=== PATIENT | male | born 1990 | race Caucasian/White ===

== ENCOUNTER 2017-06-20 07:47 | Emergency (ER) | payer BC ==
[2017-06-20] MEDS ORDERED: SODIUM CHLORIDE 0.9% 1,000 ML IV STA (08:03)
--- NOTE | 2017-06-20 08:14 | ED ---
Chest Pain HPI - General Chief Complaint: Chest Pain Stated Complaint: chest pain Time Seen by Provider: 06/20/17 08:03 Source: patient, RN notes reviewed, old records reviewed Mode of arrival: wheelchair Limitations: no limitations - History of Present Illness Initial Comments: this is 26-year-old male presenting to emergency Department chief complaint of concern going through alcohol withdrawals, patient reports that he drinks approximately 2 pints a day. Patient states that he stopped drinking last night into this morning. He reports that since then he started to develop some chest pain and shortness of breath and left arm numbness. Patient reports that these symptoms are related to going through withdrawals. He reports he's had some frequent diarrhea. Denies any nausea or vomiting or abdominal pain. Patient states that he has never tried to quit drinking before. Patient states that last night he drank a fifth of rum. Patient states that he is a smoker. Denies any specific coughing. He reports the chest pains mainly over the left side, seems to be deep. Some reproducible. 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 - Related Data Previous Rx's Medication Instructions Recorded chlordiazePOXIDE HCl [Librium] 25 mg PO QID #15 capsule 06/20/17 Allergies Allergy/AdvReac Type Severity Reaction Status Date / Time Sulfa (Sulfonamide Allergy Rash/Hives Verified 06/20/17 07:58 Antibiotics) Review of Systems ROS Statement: Those systems with pertinent positive or pertinent negative responses have been documented in the HPI. ROS Other: All systems not noted in ROS Statement are negative. EKG Findings - EKG Comments: EKG Findings:: EKG performed at 807 shows sinus tachycardia ventricular rate of 102 bpm. Evidence of an incomplete right bundle-branch block. MT interval 120 ms. QRS ration 110 ms. QT QTc is 366/[address] elevation or T- wave inversion. Past Medical History Additional Past Medical History / Comment(s): ETOH History of Any Multi-Drug Resistant Organisms: None Reported Additional Past Surgical History / Comment(s): foot sx as a baby Past Psychological History: Anxiety Smoking Status: Current every day smoker Past Alcohol Use History: Abuse Past Drug Use History: Marijuana General Exam - General Exam Comments Initial Comments: is a 26-year-old male. No acute distress. Limitations: no limitations General appearance: alert, in no apparent distress Head exam: Present: atraumatic, normocephalic, normal inspection Eye exam: Present: normal appearance, PERRL, EOMI. Absent: scleral icterus, conjunctival injection, periorbital swelling ENT exam: Present: normal exam, mucous membranes moist Neck exam: Present: normal inspection. Absent: tenderness, meningismus, lymphadenopathy Respiratory exam: Present: normal lung sounds bilaterally. Absent: respiratory distress, wheezes, rales, rhonchi, stridor Cardiovascular Exam: Present: regular rate, normal rhythm, normal heart sounds. Absent: systolic murmur, diastolic murmur, rubs, gallop, clicks GI/Abdominal exam: Present: soft, normal bowel sounds. Absent: distended, tenderness, guarding, rebound, rigid Extremities exam: Present: normal inspection, full ROM, normal capillary refill. Absent: tenderness, pedal edema, joint swelling, calf tenderness Back exam: Present: normal inspection Course Vital Signs 06/20/17 06/20/17 07:52 09:21 Temperature 97.3 F L Pulse Rate 94 95 Respiratory 20 20 Rate Blood Pressure 130/88 145/89 O2 Sat by Pulse 99 99 Oximetry Chest Pain MDM - MDM This is a 26-year-old male chief complaint of going through alcohol withdrawals causing chest pain and left arm numbness. Patient does appear somewhat anxious and started to go through withdrawals. He does have some shakes. Patient's lab work was reviewed and EKG was reviewed. Negative troponin. Negative amylase and lipase. All EKG was also normal limits. Chest x-ray was reviewed and shows no evidence of any acute process. out alcohol level was 134 in the emergency department today. Patient was given 1 mg of IV Ativan for withdrawals. He reports that his chest pain and symptoms are feeling much better at this time. Discussed with the patient that he needs to complete palpation recovery programs. I will prescribe the patient medication to prevent withdrawal. Discussed close follow-up with a primary care provider as well. Discussed that he needs to quit drinking and to start taking the medicine as prescribed. Discussed returning to the emergency department if any alarming signs or symptoms occur. Patient's mother is at bedside and is supportive of this care. Disposition Clinical Impression: Alcohol withdrawal, Anxiety, Atypical chest pain Disposition: HOME SELF-CARE Condition: Good Instructions: Alcohol Use Disorder (ED) Additional Instructions: Patient advised to take the medication as directed. Patient is to follow-up with outpatient substance abuse therapy or inpatient rehab facility. Return to the emergency department if any alarming signs or symptoms occur. Prescriptions: chlordiazePOXIDE HCl [Librium] 25 mg PO QID #15 capsule Referrals: Nonstaff,Physician [Primary Care Provider] - 1-2 days Time of Disposition: 09:37
[2017-06-20] MEDS ORDERED: LORazepam 2 MG/ML SYRINGE IV STA (08:23)
[2017-06-20] MEDS ORDERED: SODIUM CHLORIDE 0.9% 1,000 ML IV SCH (08:30)
[2017-06-20 08:31] LABS: Basophils % (A) 1 %; CH 34.9; CHCM 38.8; Eosinophils # (A) 0.1 k/uL (0-0.7); Eosinophils % (A) 2 %; HCT 46.4 % (39.0-53.0); HDW 2.86; HGB 17.3 gm/dL (13.0-17.5); Hyperchromasia Moderate; Luc # (Auto) 0.11; Luc % (Auto) 3; Lymphocytes # (A) 0.9 k/uL (1.0-4.8); Lymphocytes % (A) 22 %; MCH 33.6 pg (25.0-35.0); MCHC 37.3 g/dL (31.0-37.0); MCV 90.1 fL (80.0-100.0); Mean Platelet Volume 6.9; Monocytes # (A) 0.3 k/uL (0-1.0); Monocytes % (A) 7 %; Neutrophils # (A) 2.9 k/uL (1.3-7.7); Neutrophils % (A) 67 %; RBC 5.15 m/uL (4.30-5.90); RDW 12.5 % (11.5-15.5); WBC 4.4 k/uL (3.8-10.6); WBC (Perox) 4.82
[2017-06-20 08:33] LABS: INR 1.2 (<1.2); Partial Thromboplastin Time 27.7 sec (22.0-30.0); Prothrombin Time 11.5 sec (9.0-12.0)
[2017-06-20 08:35] LABS: ALT 43 U/L (21-72); AST 46 U/L (17-59); Alkaline Phosphatase 90 U/L (38-126); Amylase 62 U/L (30-110); Anion Gap 12 mmol/L; Blood Urea Nitrogen 6 mg/dL (9-20); Calcium 9.4 mg/dL (8.4-10.2); Carbon Dioxide 25 mmol/L (22-30); Chloride 98 mmol/L (98-107); Glucose 95 mg/dL (74-99); Magnesium 1.6 mg/dL (1.6-2.3); Non-African American GFR(MDRD) >60 (>60 ml/min/1.73 sqM); Potassium 3.6 mmol/L (3.5-5.1); Sodium 135 mmol/L (137-145); Total Bilirubin 1.6 mg/dL (0.2-1.3); Total Protein 7.6 g/dL (6.3-8.2)
[2017-06-20 08:36] LABS: Alcohol 137 mg/dL
[2017-06-20 08:46] LABS: Manual Review Performed
[2017-06-20 08:51] LABS: Creatine Kinase 150 U/L (55-170)
--- NOTE | 2017-06-20 09:01 | XR ---
EXAMINATION TYPE: XR chest 2V DATE OF EXAM: 06/20/2017 COMPARISON: NONE TECHNIQUE: PA and lateral views submitted. HISTORY: Chest pain FINDINGS: The lungs are clear and there is no pneumothorax, pleural effusion, or focal pneumonia. IMPRESSION: 1. No acute process.
[2017-06-20 09:03] LABS: Creatine Kinase MB 1.8 ng/mL (0.0-2.4); Troponin I <0.012 ng/mL (0.000-0.034)
[2017-06-20] MEDS ORDERED: chlordiazePOXIDE 25 MG CAP PO STA (09:33)
[2017-06-20 09:57] VITALS: BP 127/82; PULSE 81; RESP 18; TEMP 97.8
== END 2017-06-20 10:01 | disposition home or self-care (01) ==
LOC: EC 07:47
DX: F10.230 Alcohol dependence with withdrawal, uncomplicated (principal); F41.9 Anxiety disorder, unspecified; R07.89 Other chest pain; F17.200 Nicotine dependence, unspecified, uncomplicated; Z88.2 Allergy status to sulfonamides
CPT/HCPCS: 36415; 80053; 82150; 82550; 82553; 83690; 83735; 84484; 85025; 85610; 85730; 80320; 71020; 99285; 96374; 96361; J2060